=== PATIENT | female | born 1980 | race Caucasian/White ===

== ENCOUNTER 2019-01-25 23:05 | Emergency (ER) | payer OTHER, BC ==
[2019-01-26] MEDS: DIPHENHYDRAMINE 50 MG INJ IM (00:21)
[2019-01-26] MEDS: DEXAMETHASONE 10 MG/ML 1 ML INJ IM (00:22)
[2019-01-26] MEDS: LEVALBUTEROL (NEB) 1.25 MG/0.5 ML AMP HHN (00:31)
== END 2019-01-26 01:01 | disposition home or self-care (01) ==
LOC: FTE 01-26 01:01
DX: J45.901 Unspecified asthma with (acute) exacerbation (principal)
CPT/HCPCS: 94664; 96372; 99284-25